=== PATIENT | female | born 1990 | race Caucasian/White ===

== ENCOUNTER 2023-06-13 20:05 | Emergency (ER) | payer SELFPAY ==
[~2023-06-13] VITALS: Ht 160 cm; Wt 75.0 kg
[2023-06-13 21:00] VITALS: BP 135/75; PULSE 114; RESP 18; O2SAT 95
[2023-06-13] MEDS: KETOROLAC TROMETH 30 MG/ML 1ML VIAL IV ONE (22:57)
[2023-06-14] MEDS ORDERED: IBUP1TAB5 PO (00:33)
[2023-06-14] MEDS ORDERED: CEPH500C PO (00:33)
[2023-06-14] MEDS ORDERED: IBUP-1455 PO (00:40)
== END 2023-06-14 00:39 | disposition home or self-care (01) ==
LOC: ER 20:05
DX: S01.511A Laceration without foreign body of lip, initial encounter (principal); W18.39XA Other fall on same level, initial encounter; Y93.89 Activity, other specified; Y92.89 Other specified places as the place of occurrence of the external cause; Y99.8 Other external cause status
CPT/HCPCS: 40650; 70486; 96374; 99285; J1885